=== PATIENT | female | born 1990 | race African-American/Black ===

== ENCOUNTER 2021-07-29 08:00 | Outpatient (CLI) | payer OTHER ==
[2021-07-29 14:06] LABS: BASOPHILS % (AUTO) 0.2 %; HCT - HEMATOCRIT 39.4 % (37.0-47.0); HGB - HEMOGLOBIN 12.1 g/dL (12.0-16.0); LYMPHOCYTES # (AUTO) 1.5 10^3/uL (1.5-3.5); LYMPHOCYTES % (AUTO) 34.9 %; MEAN CORPUSCULAR HEMOGLOBIN 24.4 pg (27.0-31.0); MEAN CORPUSCULAR HGB CONC 30.7 g/dL (32.0-36.0); MEAN CORPUSCULAR VOLUME 79.4 fL (81.0-99.0); MONOCYTES # (AUTO) 0.6 10^3/uL (0.0-1.0); MONOCYTES % (AUTO) 13.7 %; NEUTROPHILS # (AUTO) 2.1 10^3/uL (1.5-6.6); NEUTROPHILS % (AUTO) 50.2 %; PLT - PLATELET COUNT 359 10^3/uL (130-450); RED BLOOD COUNT 4.96 10^6/uL (4.20-5.40); RED CELL DISTRIBUTION WIDTH 16.2 % (12.0-15.0); WHITE BLOOD COUNT 4.2 x10^3/uL (4.8-10.8)
[2021-07-29 14:31] LABS: ALBUMIN 4.6 g/dL (3.2-5.5); ALBUMIN/GLOBULIN RATIO 1.4 (1.0-2.2); BILIRUBIN,TOTAL 0.5 mg/dL (0.2-1.0); CALCIUM 9.5 mg/dL (8.5-10.3); CREATININE 0.7 mg/dL (0.4-1.0); POTASSIUM 4.2 mmol/L (3.5-5.0); TOTAL PROTEIN 7.8 g/dL (6.7-8.2)
== END 2021-07-29 23:59 ==
LOC: LAB.N 08:00
PROVIDERS: ATTEND Nurse Practitioner
DX: R10.9 Unspecified abdominal pain (principal)
CPT/HCPCS: 36415; 80053; 82150; 83690; 85025

== ENCOUNTER 2022-08-30 16:23 | Outpatient (CLI) | payer OTHER | END 2022-08-30 23:59 | disposition short-term general hospital (02) | LOC: EMS 16:23 | DX: O03.6 Delayed or excessive hemorrhage following complete or unspecified spontaneous abortion (principal); R55 Syncope and collapse | CPT/HCPCS: A0425; A0429 ==

== ENCOUNTER 2022-09-29 08:00 | Outpatient (CLI) | payer OTHER | END 2022-09-29 23:59 | disposition home or self-care (01) | LOC: LAB.N 08:00 | PROVIDERS: ATTEND Registered Nurse | DX: J02.9 Acute pharyngitis, unspecified (principal) | CPT/HCPCS: 87070 ==

== ENCOUNTER 2023-10-15 17:58 | Outpatient (CLI) | payer BC, OTHER | END 2023-10-15 23:59 | disposition critical access hospital (66) | LOC: EMS 17:58 | DX: O99.891 Other specified diseases and conditions complicating pregnancy (principal); R10.30 Lower abdominal pain, unspecified | CPT/HCPCS: A0425; A0429; 36415; 80053; 83690; 85025 ==

== ENCOUNTER 2023-10-15 18:19 | Emergency (ER) | payer BC, OTHER ==
[2023-10-15 18:56] LABS: BASOPHILS % (AUTO) 0.2 %; EOSINOPHILS # (AUTO) 0.1 10^3/uL (0.0-0.7); EOSINOPHILS % (AUTO) 0.6 %; HCT - HEMATOCRIT 35.3 % (37.0-47.0); HGB - HEMOGLOBIN 11.7 g/dL (12.0-16.0); LYMPHOCYTES # (AUTO) 2.4 10^3/uL (1.5-3.5); LYMPHOCYTES % (AUTO) 22.4 %; MEAN CORPUSCULAR HEMOGLOBIN 27.9 pg (27.0-31.0); MEAN CORPUSCULAR HGB CONC 33.1 g/dL (32.0-36.0); MEAN PLATELET VOLUME 9.4 fL (7.9-10.8); MONOCYTES # (AUTO) 0.8 10^3/uL (0.0-1.0); MONOCYTES % (AUTO) 7.7 %; NEUTROPHILS # (AUTO) 7.4 10^3/uL (1.5-6.6); NEUTROPHILS % (AUTO) 68.3 %; PLT - PLATELET COUNT 283 10^3/uL (130-450); RED CELL DISTRIBUTION WIDTH 13.2 % (12.0-15.0); WHITE BLOOD COUNT 10.9 x10^3/uL (4.8-10.8)
--- NOTE | 2023-10-15 18:56 | ED Physician Documentation ---
PD HPI ABD PAIN - Stated complaint Stated Complaint: ABD PX/PREG 21 WEEKS - Chief complaint Chief Complaint: Abd Pain - Additional information Additional information: 33-year-old female G3, P1 presents emergency department for abdominal pain that is been ongoing now for about 2 weeks. She says that she gets lower abdominal pressure that is not necessarily painful but it comes and goes in waves throughout the day and then now worsening pain in the pelvic region that she says hurts in her suprapubic area and says that it hurts in her bones. No nausea vomiting no recent fevers or chills no vaginal discharge or bleeding. Still feels baby moving actively has not taken anything for the pain. No dysuria no flank pain. PD PAST MEDICAL HISTORY - Past Medical History Past Medical History: No - Past Surgical History Past Surgical History: No - Present Medications Home Medications: Ambulatory Orders Medication Instructions Recorded Confirmed Ondansetron [Ondansetron Odt] 8 mg PO Q8HR PRN #20 tab 10/15/23 - Allergies Allergies/Adverse Reactions: Allergies Allergy/AdvReac Type Severity Reaction Status Date / Time No Known Drug Allergies Allergy Verified 10/15/23 18:42 - Social History Does the pt smoke?: No Smoking Status: Never smoker Does the pt drink ETOH?: No Does the pt have substance abuse?: No PD ED PE NORMAL - Vitals Vital signs reviewed: Yes - General General: Alert and oriented X 3, No acute distress, Well developed/nourished - Abdomen Abdomen: Normal bowel sounds, Non tender, Other () - Extremities Extremities: No deformity Results - Vitals Vitals: Vital Signs - 24 hr 10/15/23 10/15/23 18:26 20:30 Temperature 37.0 C Heart Rate 76 88 Respiratory 18 22 Rate Blood Pressure 148/80 H 114/72 O2 Saturation 100 99 Oxygen O2 Source Room air - Labs Labs: Laboratory Tests 10/15/23 10/15/23 18:52 18:52 WBC 10.9 H RBC 4.20 Hgb 11.7 L Hct 35.3 L MCV 84.0 MCH 27.9 MCHC 33.1 RDW 13.2 Plt Count 283 MPV 9.4 Neut # (Auto) 7.4 H Lymph # (Auto) 2.4 [place] # (Auto) 0.8 Eos # (Auto) 0.1 Baso # (Auto) 0.0 Absolute Nucleated RBC 0.00 Nucleated RBC % 0.0 Sodium 134 L Potassium 3.4 L Chloride 103 Carbon Dioxide 24 Anion Gap 7.0 BUN 5 L Creatinine 0.5 L Estimated GFR (MDRD) 173 Glucose 84 Calcium 9.1 Total Bilirubin 0.3 AST 9 L ALT 7 L Alkaline Phosphatase 55 Total Protein 6.5 Albumin 3.6 Globulin 2.9 Albumin/Globulin Ratio 1.2 Lipase 23 PD Medical Decision Making - ED course ED course: 33-year-old female presents emergency department for abdominal pain as well as pelvic pain. She has no vaginal discharge make me less worried or concerned about possible UTI or miscarriage. No vaginal discharge. Patient says that it does not feel like she is having contractions she said that she has had contractions with her first delivery. No fevers or chills she has been having ongoing emesis but this is because of hyperemesis . I spoke with [facility] Dr. Zuniga who said that he would be able to see patient in clinic right now for further evaluation sounds like possible round ligament pain but he will evaluate her she was given some Tylenol here in the emergency department to help with her pain. Departure - Departure Disposition: 01 Home, Self Care Clinical Impression: Abdominal pain Instructions: Abdominal Pain Comments: Thank you for trusting us with your care please go down the [facility] to [facility] for further evaluation of this pain you are experiencing In regards to your abdominal pain, and pelvis pain Forms: PCP List Discharge Date/Time: 10/15/23 20:43
[2023-10-15 19:15] LABS: ALBUMIN 3.6 g/dL (3.2-5.5); ALBUMIN/GLOBULIN RATIO 1.2 (1.0-2.2); BILIRUBIN,TOTAL 0.3 mg/dL (0.2-1.0); CALCIUM 9.1 mg/dL (8.5-10.3); CREATININE 0.5 mg/dL (0.6-1.3); POTASSIUM 3.4 mmol/L (3.5-4.5); TOTAL PROTEIN 6.5 g/dL (6.4-8.9)
[2023-10-15] MEDS: ACETAMINOPHEN 325 MG TABLET PO STA (20:05)
[2023-10-15 20:45] VITALS: BP 114/72; O2SAT 99
== END 2023-10-15 20:43 | disposition home or self-care (01) ==
LOC: EDUNIT# → ED 18:19
DX: O99.891 Other specified diseases and conditions complicating pregnancy (principal); R10.9 Unspecified abdominal pain; Z3A.21 21 weeks gestation of pregnancy; R10.2 Pelvic and perineal pain; O21.2 Late vomiting of pregnancy; O34.219 Maternal care for unspecified type scar from previous cesarean delivery
CPT/HCPCS: 36415; 80053; 83690; 85025; 99283; 99284; A9270; Q0162

== ENCOUNTER 2023-10-15 20:33 | Outpatient (CLI) | payer BC, OTHER ==
[2023-10-15 21:14] VITALS: BP 134/70
--- NOTE | 2023-10-15 21:19 | PROVIDER PROGRESS NOTE ---
- HPI Chief Complaint: GI symptoms Current : Vital Signs Temperature 98.4 F 10/15/23 21:02 Heart Rate 90 10/15/23 21:02 Respiratory Rate 18 10/15/23 21:02 Blood Pressure 134/70 H 10/15/23 21:02 Temperature 98.4 F 10/15/23 21:02 Heart Rate 90 10/15/23 21:02 Respiratory Rate 18 10/15/23 21:02 Blood Pressure 134/70 H 10/15/23 21:02 O2 Saturation If not protocol: Oxygen Flow, liters/minute - Plan Plan: Patient is a 33-year-old -0-1-1 at 21 weeks gestation presented today for low pelvic pain. Her main complaint seems to be pubic symphysis pain with midline bony pain worse when putting pressure on 1 leg. Improved when resting. Also having nausea and vomiting which has been a problem throughout . Has tried multiple things, but go through ways. Still vomiting every day. Has Compazine at home, but not taking regularly. Is taking Unisom at nighttime and B6 once a day. 1 previous section. Getting care in [place] now because she desires [place] Physical Exam Constitutional: alert, no acute distress, well hydrated, well developed, well nourished, appropriate dress. Cardiovascular: Regular rate and rhythm. Respiratory: no respiratory distress. Abdomen: Gravid, nondistended, nontender, no guarding. Moderate pain with pressure in the anterior pubic bone Psych: affect and mood appropriate, normal interaction, good eye contact. FHT: 135 bpm Assessment and plan Pubic symphysis dysfunction -Discussed pain management Tylenol, rest. -Did buy a maternity support belt today, but goal to decrease pain not alleviate completely -Discussed that this may improve with time but that someone will continue to problems throughout . -Educated on postural movements and keeping legs together when possible when sitting and standing Nausea vomiting of -Labs with minor abnormalities, no significant problems. Will likely resolve with her next meal -Declines need for admission now. Able to tolerate p.o. and eat meals. -Nausea and vomiting improved with ondansetron then metoclopramide. Prescription sent to pharmacy -Encouraged B6 3 times a day as well as Unisom.
[2023-10-15] MEDS: ONDANSETRON ODT 4 MG TABLET TL PRN (21:39)
[2023-10-15] MEDS: METOCLOPRAMIDE 10 MG TABLET PO SCH (22:12)
== END 2023-10-15 22:43 | disposition home or self-care (01) ==
LOC: WFO 20:33 → FBP 20:36 → WFO 22:43
PROVIDERS: ATTEND Obstetrics & Gynecology
DX: O99.891 Other specified diseases and conditions complicating pregnancy (principal); R10.2 Pelvic and perineal pain; O21.2 Late vomiting of pregnancy; O34.219 Maternal care for unspecified type scar from previous cesarean delivery; Z3A.21 21 weeks gestation of pregnancy
CPT/HCPCS: 36415; 80053; 83690; 85025; 99213